=== PATIENT | male | born 1955 | race Caucasian/White ===

== ENCOUNTER 2019-12-24 20:40 | Emergency (ER) | payer OTHER ==
[2019-12-24] MEDS ORDERED: hydrOXYzine HCL 100 MG/2 ML SDV IM ONE (21:51)
--- NOTE | 2019-12-24 21:57 | EDM.PDOC ---
ED HPI GENERAL MEDICAL PROBLEM - General Chief Complaint: Skin Complaint Stated Complaint: BEE STING ON RIGHT FOREARM Time Seen by Provider: 12/24/19 21:45 Source of Information: Reports: Patient History Limitations: Reports: Other (no old records) - History of Present Illness INITIAL COMMENTS - FREE TEXT/NARRATIVE: 64 yo male from [facility] was stung on the dorsum of his distal R forearm yesterday. He has not tried any tx before arrival. Today has more local swelling, redness and itching. No fever, SOB, wheezing, or throat tightness. Onset: Gradual Onset Date: 12/23/19 Duration: Day(s): (1+), Getting Worse Location: Reports: Upper Extremity, Right Quality: Reports: Other (Itching) Severity: Mild Improves with: Reports: None Worsens with: Reports: Other (? time) Context: Reports: Other (See HPI) Associated Symptoms: Reports: No Other Symptoms Treatments [employer]: Reports: Other (see below) (none) - Related Data Allergies Allergy/AdvReac Type Severity Reaction Status Date / Time No Known Allergies Allergy Verified 12/24/19 21:45 Home Meds: Home Meds Aspirin [Halfprin] 81 mg PO DAILY 12/24/19 [History] Losartan/Hydrochlorothiazide [Losartan-HCTZ 50-12.5 MG] 1 each PO DAILY 12/24/19 [History] atorvaSTATin [Lipitor] 10 mg PO BEDTIME 12/24/19 [History] Past Medical History Cardiovascular History: Reports: High Cholesterol, Hypertension Social & Family History - Family History Family Medical History: Noncontributory - Tobacco Use Smoking Status *Q: Never Smoker - Recreational Drug Use Recreational Drug Use: No ED ROS GENERAL - Review of Systems Review Of Systems: See Below Constitutional: Reports: No Symptoms HEENT: Reports: No Symptoms Respiratory: Reports: No Symptoms Cardiovascular: Reports: No Symptoms Skin: Reports: Pruritis (R forearm), Erythema (R dorsal/distal forearm). Denies: Urticaria Neurological: Reports: No Symptoms ED EXAM, SKIN/RASH Exam: See Below Exam Limited By: No Limitations General Appearance: Alert, WD/WN, No Apparent Distress Extremities: Pedal Edema (slight edema at sting site.), Redness (R forearm). No: Limited Range of Motion, Increased Warmth Neurological: Alert, Oriented, CN II-XII Intact, No Motor/Sensory Deficits, Inattentive Psychiatric: Normal Affect, Normal Mood Skin: Warm, Dry, Intact, No Rash, Erythema (R distal/dorsal forearm). No: Increased Warmth Location, Skin: Upper Extremity, Right Characteristics: Erythematous Associated features: Induration. No: Tenderness, Lymphangitis Course - Vital Signs Last Recorded V/S: Last Vital Signs Temp 35.7 C L 12/24/19 21:42 Pulse 60 12/24/19 21:42 Resp 16 12/24/19 21:42 BP 153/79 H 12/24/19 21:42 Pulse Ox 98 12/24/19 21:42 - Orders/Labs/Meds Orders: Active Orders 24 hr Category Date Time Status hydrOXYzine HCL [Vistaril] Med 12/24/19 21:51 Once 100 mg IM ONETIME ONE Departure - Departure Time of Disposition: 22:05 Disposition: Home, Self-Care 01 Condition: Good Clinical Impression: Local reaction to bee sting Qualifiers: Encounter type: initial encounter Injury intent: undetermined intent Qualified Code(s): T63.444A - Toxic effect of venom of bees, undetermined, initial encounter - Discharge Information *PRESCRIPTION DRUG MONITORING PROGRAM REVIEWED*: Not Applicable *COPY OF PRESCRIPTION DRUG MONITORING REPORT IN PATIENT FOREIGN: Not Applicable Instructions: Bee, Wasp, or Hornet Sting, Adult Referrals: PCP,None [Primary Care Provider] - Additional Instructions: Take diphenhydramine 50 mg every 6 hrs starting after 4 am tonight. Elevate that arm and apply cold compresses. Avoid scratching. Recheck if worse. Sepsis Event Note (ED) - Evaluation Sepsis Screening Result: No Definite Risk - Focused Exam Vital Signs: Vital Signs Temp Pulse Resp BP Pulse Ox 12/24/19 21:42 35.7 C L 60 16 153/79 H 98 - My Orders Last 24 Hours: My Active Orders 12/24/19 21:51 hydrOXYzine HCL [Vistaril] 100 mg IM ONETIME ONE - Assessment/Plan Last 24 Hours: My Active Orders 12/24/19 21:51 hydrOXYzine HCL [Vistaril] 100 mg IM ONETIME ONE
== END 2019-12-24 22:25 | disposition home or self-care (01) ==
LOC: JP.ED 20:40
DX: T63.441A Toxic effect of venom of bees, accidental (unintentional), initial encounter (principal); E78.00 Pure hypercholesterolemia, unspecified; I10 Essential (primary) hypertension; Z79.82 Long term (current) use of aspirin; Z79.899 Other long term (current) drug therapy
CPT/HCPCS: 96372; 99282; J3410